=== PATIENT | female | born 1980 | race Caucasian/White ===

== ENCOUNTER 2016-11-03 14:05 | Emergency (ER) | payer BC ==
--- NOTE | ~2016-11-03 | CT71 ---
[facility] A Service [facility] RADIOLOGY TEXT RESULTS PATIENT: SUGAR DIAZ LOCATION: SED : 78 UNIT #: [id number] AGE: [address]: Chandan Espino MD SEX: F ORDER DR: [id number] [place] [id number] E MR#: [id number] Acc #: [id number] NAME: SUGAR DIAZ : 1980 SEX: F STUDY DATE/TIME: 11/03/2016 14:49 UNIT: SED ROOM: STUDY DESCRIPTION: CT Head Wo Contrast Attending Physician: Chandan Espino M.D. Ordering Physician: Chandan Espino M.D. Primary Care Physician: Primary Care Physician No MEDICAL IMAGING REPORT This report is preliminary unless electronic signature is present. EXAM CT head without contrast INDICATIONS Migraine headache and posterior neck pain since last . PROCEDURE Unenhanced CT of the head. This CT exam was performed with one or more of the following radiation dose reduction techniques: automatic exposure control, adjustment of mA and/or kV according to patient size, and iterative reconstruction. COMPARISON None. FINDINGS No acute hemorrhage, abnormal mass effect, extraaxial fluid collection or hydrocephalus. No calvarial fracture. The paranasal sinuses and mastoid air cells are clear. IMPRESSION No acute intracranial findings. Dictated by... Adelso Michelle M.D. THIS IS AN ELECTRONICALLY VERIFIED REPORT Adelso Michelle M.D. at 11/04/2016 8:29 AM EED/ljd [facility] A Service [facility] RADIOLOGY TEXT RESULTS PATIENT: SUGAR DIAZ LOCATION: SED : 78 UNIT #: [id number] AGE: [address]: Chandan Espino MD SEX: F ORDER DR: TD: 11/04/2016 02:43 JOB #: [id number] MEDICAL IMAGING REPORT Page 1 of 1
[~2016-11-03 14:05] MED LIST: ACYCLOVIR PO; BACTRIM DS TABL1 TA1 PO; FLEXERIL10 MG PO; METFORMIN PO; MOTRIN600 M2 PO; NEURONTIN PO; NO MEDICATIONS; TYLENOL #3 PO
[2016-11-03 14:59] LABS: BASOPHIL% 0.5 % (0-2.5); EOSINOPHIL# 0.1 X10e3 (0-0.7); EOSINOPHIL% 1.5 % (0.0-7.0); HEMATOCRIT 35.9 % (35.0-45.0); LYMPHOCYTE# 2.1 X10e3 (1.0-3.5); LYMPHOCYTE% 27.2 % (17.0-45.0); MEAN CELL VOLUME 88.6 FL (83-96); MEAN CORPUSCULAR HEMOGLOBIN 29.6 PG (28-34); MEAN CORPUSCULAR HGB CONC 33.5 g/dL (30-36); MEAN PLATELET VOLUME 7.9 FL (6.5-11.5); MONOCYTE# 0.5 X10e3 (0-1.0); MONOCYTE% 6.5 % (3.0-12.0); NEUTROPHIL% 64.3 % (40-75); PLATELET COUNT 300 X10e3 (140-420); RED BLOOD COUNT 4.05 X10e (3.90-5.30); RED CELL DISTRIBUTION WIDTH 13.7 % (11.0-15.5); WHITE BLOOD COUNT 7.7 X10e3 (4.0-10.5)
[2016-11-03 15:20] LABS: ALBUMIN SERUM 4.4 g/dL (3.5-5.0); ALKALINE PHOSPHATASE 38 U/L (32-92); ALT (SGPT) 19 U/L (10-40); AST (SGOT) 19 U/L (10-42); BILIRUBIN,TOTAL 0.3 mg/dL (0.2-2.0); BLOOD UREA NITROGEN 10 mg/dL (9-23); CALCIUM SERUM 8.8 mg/dL (8.4-10.2); CARBON DIOXIDE 24 mmol/L (22-31); CHLORIDE 103 mmol/L (100-111); CREATININE SERUM 0.5 mg/dL (0.6-1.4); GLOM FILT RATE Estimated 123.7 mL/min (>60); GLUCOSE FASTING 103 mg/dL (70-110); POTASSIUM 3.6 mmol/L (3.5-5.1); PROTEIN TOTAL SERUM 7.5 g/dL (6.0-8.3); SODIUM 136 mmol/L (135-145)
[2016-11-03 15:35] LABS: BILIRUBIN, DIRECT <0.1 mg/dL (0.0-0.2); BILIRUBIN,INDIRECT 0.2 mg/dL (0.0-0.9); DIFF IND NO
== END 2016-11-03 16:51 | disposition home or self-care (01) ==
LOC: SED 14:05
PROVIDERS: Emergency Medicine
DX: R51 Headache (principal); E11.9 Type 2 diabetes mellitus without complications; Z90.49 Acquired absence of other specified parts of digestive tract; Z79.899 Other long term (current) drug therapy; Z88.6 Allergy status to analgesic agent
CPT/HCPCS: 36415; 70450; 80048; 80076; 85025; 96361; 96374; 96375; 99284; J0780; J1100; J1200; J1885; J2405

== ENCOUNTER 2016-11-22 00:27 | Emergency (ER) | payer BC ==
[~2016-11-22] VITALS: Ht 165.1 cm; Wt 99.8 kg
== END 2016-11-22 02:54 | disposition home or self-care (01) ==
LOC: SED 00:27
DX: G43.909 Migraine, unspecified, not intractable, without status migrainosus (principal); E11.9 Type 2 diabetes mellitus without complications; Z79.899 Other long term (current) drug therapy
CPT/HCPCS: 96365; 96375; 99283; J0780; J1100; J1200; J1885; J3475